=== PATIENT | female | born 1990 | race Caucasian/White ===

== ENCOUNTER 2021-04-26 18:20 | Emergency (ER) | payer MEDICAID ==
[~2021-04-26] VITALS: Ht 163.8 cm; Wt 69.0 kg
[2021-04-26 19:27] VITALS: BP 148/97
[2021-04-27] MEDS ORDERED: MYCOL30CR TP (09:39)
== END 2021-04-26 21:29 | disposition left against medical advice (07) ==
LOC: ER 18:21
DX: R21 Rash and other nonspecific skin eruption (principal); Z53.21 Procedure and treatment not carried out due to patient leaving prior to being seen by health care provider

== ENCOUNTER 2021-04-27 08:47 | Emergency (ER) | payer MEDICAID ==
[~2021-04-27] VITALS: Ht 162.6 cm; Wt 73.2 kg
[2021-04-27] MEDS ORDERED: MYCOL30CR TP (09:39)
[2021-04-27 10:16] VITALS: BP 125/91
== END 2021-04-27 10:11 | disposition home or self-care (01) ==
LOC: ER 08:47
DX: B37.9 Candidiasis, unspecified (principal); Z79.899 Other long term (current) drug therapy
CPT/HCPCS: 99283

== ENCOUNTER 2021-12-04 18:58 | Emergency (ER) | payer MEDICAID ==
[~2021-12-04] VITALS: Ht 162.6 cm; Wt 56.8 kg
[~2021-12-04 18:58] MED LIST: MYCOL30CR TP
[2021-12-04 19:30] LABS: URINE HCG NEGATIVE (NEG)
[2021-12-04 19:32] LABS: CLARITY,URINE SLIGHTLY CLOUDY (Clear); COLOR,URINE YELLOW (Yellow); GLUCOSE, URINE NEGATIVE (Neg); KETONES,URINE NEGATIVE (Neg); LEUKOCYTE ESTERASE ,URINE SMALL (Neg); NITRITES, URINE NEGATIVE (Neg); OCCULT BLOOD,URINE NEGATIVE (Neg); PH,URINE 6.5 (4.8-8.0); PROTEIN,URINE TRACE mg/dl (Neg); UROBILINOGEN,URINE 0.2 E.U/dL (0.2-1.0)
--- NOTE | 2021-12-04 19:33 | NUR ---
PT ROOMED. ASSUMED CARE OF PT.
[2021-12-04 19:37] LABS: UA COLLECTION TYPE CLN CATCH MIDSTREAM
[2021-12-04 19:42] LABS: BACTERIA,URINE 1+ /HPF (Neg); MUCUS STRANDS FEW /LPF (Neg); SQUAMOUS EPITHELIAL CELL,UR FEW /LPF (FEW); WBC,URINE 30-50 /HPF (0-4)
[2021-12-04] MEDS ORDERED: CEPH-585 PO (20:14)
[2021-12-04] MEDS ORDERED: azithromycin 250mg tablet PO ONE (20:20)
[2021-12-04] MEDS ORDERED: CEFTRIAXONE 500 MG VIAL IM ONE (20:20)
[2021-12-04] MEDS ORDERED: CefTRIAXone 1000mg IM Kit (w/lidocaine diluent) IM ONE (20:20)
[2021-12-04] MEDS ORDERED: LIDOcaine 1% 30ml preserv. free vial IJ ONE (20:30)
[2021-12-04 21:13] VITALS: BP 117/81
== END 2021-12-04 21:14 | disposition home or self-care (01) ==
LOC: ER 18:58
DX: N39.0 Urinary tract infection, site not specified (principal); R31.9 Hematuria, unspecified; R30.9 Painful micturition, unspecified; Z79.899 Other long term (current) drug therapy
CPT/HCPCS: 36415; 81001; 81025; 87077; 87088; 87186; 87491; 87591; 96372; 99283; J0696; J3490

== ENCOUNTER 2022-08-01 13:57 | Emergency (ER) | payer MEDICAID ==
[~2022-08-01] VITALS: Ht 163.8 cm; Wt 59.1 kg
[~2022-08-01 13:57] MED LIST changes: +CEPH-585 PO; -MYCOL30CR TP; +NYST30CR35 TP
[2022-08-01 14:01] VITALS: BP 117/86
[2022-08-01] MEDS ORDERED: PERM60CR19 TP (15:03)
[2022-08-01] MEDS ORDERED: NYST30CR35 TP (15:03)
== END 2022-08-01 15:12 | disposition home or self-care (01) ==
LOC: ER 13:58
DX: B37.2 Candidiasis of skin and nail (principal); Z79.899 Other long term (current) drug therapy
CPT/HCPCS: 99283

== ENCOUNTER 2023-10-27 02:31 | Emergency (ER) | payer MEDICAID ==
[~2023-10-27] VITALS: Ht 162.6 cm; Wt 70.0 kg
[~2023-10-27 02:31] MED LIST changes: -CEPH-585 PO; +PERM60CR19 TP
[2023-10-27 02:42] VITALS: BP 164/110; PULSE 115; RESP 16; TEMP 98.2; O2SAT 99
== END 2023-10-27 05:53 | disposition home or self-care (01) ==
LOC: ER 02:32
DX: R21 Rash and other nonspecific skin eruption (principal); F15.10 Other stimulant abuse, uncomplicated; Z79.899 Other long term (current) drug therapy
CPT/HCPCS: 99281

== ENCOUNTER 2024-01-23 00:09 | Emergency (ER) | payer MEDICAID ==
[~2024-01-23] VITALS: Ht 162.6 cm; Wt 65.9 kg
[2024-01-23 00:21] VITALS: BP 142/99; PULSE 104; RESP 16; TEMP 98.3; O2SAT 100
== END 2024-01-23 04:11 | disposition left against medical advice (07) ==
LOC: ER 00:09
DX: S81.052A Open bite, left knee, initial encounter (principal); Z53.21 Procedure and treatment not carried out due to patient leaving prior to being seen by health care provider; W55.01XA Bitten by cat, initial encounter; Y93.89 Activity, other specified; Y92.89 Other specified places as the place of occurrence of the external cause; Y99.8 Other external cause status
CPT/HCPCS: 99281